=== PATIENT | female | born 1980 | race Caucasian/White ===

== ENCOUNTER 2020-06-02 07:39 | Inpatient (IN) | payer OTHER ==
[~2020-06-02] VITALS: Ht 170.2 cm; Wt 73.9 kg
--- NOTE | 2020-06-03 08:46 | NUR ---
06/03/20 0820 Ai Hernández 0871-PATIENT ARRIVED BACK TO ROOM 105 FOR PACU RECOVERY.PATIENT AWAKE ON RA. RR EVEN DENIES PAIN OR NAUSEA. FUNDUS 2 BELOW UMBLICUS LIGHT RUBRA DRAINAGE ON ARETHA PAD FIRM. DAD HOLDING BABY. LR WITH 20 PITOCIN INFUSING TO RIGHT ARM IV CDI
--- NOTE | 2020-06-04 08:16 | PR ---
[facility] [address] [place], [place] [address] Signed PP Progress Notes Datetime Report Generated by CPN: 06/04/2020 08:16 SUBJECTIVE: [id number] Pain: Within Normal Limits Pain Comments: no void as yet Nausea/Vomiting: Denies Flatus: No Vital Signs: [id number] Vital Signs: Reviewed; Within Normal Limits Cardiovascular: Normal Respiratory: Normal Abdomen/Uterus: Abnormal Lochia: Normal Vulva/Perineum: Not Done Breasts: Not Done CVA Tenderness: Not Done Extremities: Normal Incision: Normal Progress: Normal Exam Comments: Abdomen with active BS. Fundus firm, NT @ U-2. H/H 8.3/25.4, WBC 13, plat 161k IMPRESSION/PLAN/PROCEDURES: [id number] Impression: Normal Progression Other Plans: ambulate, shower Procedures: None Progress Notes: Doing well. Will increase ambulation. She is encouraged to increasse her protein intake. Signing Physician: Cara Yost MD Copies: ~ *Electronically Signed* 06/04/20 08 CARA YOST MD PATIENT NAME: MATTHEW SUN PROGRESS NOTE DATE OF : 80 PHYSICIAN: CARA YOST MD RPT #: [id number] REPORT IS CONFIDENTIAL AND NOT TO BE RELEASED WITHOUT AUTHORIZATION
--- NOTE | 2020-06-05 08:45 | PR ---
[facility] [address] [facility] [place], [place] [address] Signed PP Progress Notes Datetime Report Generated by CPN: 06/05/2020 07:14 SUBJECTIVE: [id number] Pain: Within Normal Limits Pain Comments: no void as yet Nausea/Vomiting: Denies Flatus: No Bowel Movement: Yes Vital Signs: [id number] Vital Signs: Reviewed; Within Normal Limits Cardiovascular: Not Done Respiratory: Not Done Abdomen/Uterus: Abnormal Lochia: Normal Vulva/Perineum: Not Done Breasts: Not Done CVA Tenderness: Not Done Extremities: Normal Incision: Normal Progress: Normal Exam Comments: Abdomen with active BS. Fundus firm, NT @ U-2. IMPRESSION/PLAN/PROCEDURES: [id number] Impression: Normal Progression Plan: Discharge Other Plans: ambulate, shower Procedures: None Progress Notes: Doing well. She is ready for D/C. Signing Physician: Cara Yost MD Copies: ~ *Electronically Signed* 06/05/20713 CARA YOST MD PATIENT NAME: MATTHEW SUN SUE PROGRESS NOTE DATE OF : 80 PHYSICIAN: CARA YOST MD RPT #: [id number] REPORT IS CONFIDENTIAL AND NOT TO BE RELEASED WITHOUT AUTHORIZATION
--- NOTE | 2020-06-06 08:30 | OR ---
[facility] [address] [place], [place] [address] Signed DATE OF OPERATION: 06/03/2020 SURGEON: Cara Yost MD IMAGE EDITOR: Manjinder Echols MD. PREOPERATIVE DIAGNOSES: Term , previous section x2. POSTOPERATIVE DIAGNOSES: Term , previous section x2, delivered. PROCEDURE: Repeat section with low segment transverse uterine incision. ANESTHESIA: Spinal. ESTIMATED BLOOD LOSS: 500 mL. DRAINS: Pope catheter. INDICATIONS AND FINDINGS: The patient is a 40-year-old female, 5, para 2, AB1, ectopic 1, who was admitted at 39 weeks for repeat section. Her has been complicated only by her age. Antepartum testing has been normal. At the time of surgery, she was delivered of a little girl via lower segment transverse uterine incision from the ROT position with Apgars of 9 and 9 and weight of 7 pounds. The uterus, tubes, ovaries, and placenta appeared normal. DESCRIPTION OF PROCEDURE: The patient was prepped and draped in the supine position. She had two prior cesareans scars and these were both excised. The incision was then carried down to the fascia. The incision was extended laterally. The inferior and superior fascial flaps were then created. There was not too much scarring in these areas. The muscles were sharply divided. The peritoneum was opened sharply and the incision extended superiorly and inferiorly. The uterine incision was made at the upper aspect of the peritoneal Electronically Signed By: CARA YOST MD 06/06/20 0830 PATIENT NAME: MATTHEW SUN OPERATIVE REPORT DATE OF : 80 REPORT #: [id number] PHYSICIAN: CARA YOST MD PCP: HUNTER GONZALEZ MD REPORT IS CONFIDENTIAL AND NOT TO BE RELEASED WITHOUT AUTHORIZATION [facility] [address] [place], [place] [address] Signed reflection. The baby was delivered with the above findings and handed off to the pediatric staff in attendance. The placenta was removed manually and the uterus explored with a lap tape assuring no remaining fragments. The edges of the incision were then identified and the uterus was closed in 2 layers using 0 Monocryl. The first layer was a running locking stitch. The second was a vertical imbricating stitch. An additional [id number] was required near the right angle for control of bleeding. Bleeding points on the peritoneum were controlled with cautery. The abdomen was then copiously irrigated and inspected and good hemostasis was noted. The retractor was removed and the peritoneum identified. An ACell graft was laid over the lower segment to aid in healing. The peritoneum was then closed with a running suture of 3-0 Vicryl. The muscles were brought together with interrupted sutures of 0 Vicryl. Bleeding points were controlled with cautery. This layer was also irrigated and hemostasis was found. ACell powder was sprinkled over the muscles to aid in healing. The fascia was then closed from each angle to the midline with a running suture of 0 Vicryl. The subcu space was irrigated and bleeding points controlled with cautery. A few interrupted sutures were placed using 3-0 Vicryl reapproximating the skin edges. The skin incision itself was closed with a running subcuticular suture of 4-0 Vicryl Rapide. This was followed by Mastisol and Steri-Strips. All sponge and needle counts were correct. She tolerated procedure well and was taken to the recovery room in good condition. Cara Yost MD PJW/ANALIL /[id number] cc: Dr. Manjinder Echols Copies: ~ Electronically Signed By: CARA YOST MD 06/06/20 0830 PATIENT NAME: MATTHEW SUN OPERATIVE REPORT DATE OF : 80 REPORT #: [id number] PHYSICIAN: CARA YOST MD PCP: HUNTER GONZALEZ MD REPORT IS CONFIDENTIAL AND NOT TO BE RELEASED WITHOUT AUTHORIZATION
== END 2020-06-05 10:35 | disposition home or self-care (01) | DRG 788 ==
LOC: FBC 06-03 05:10
PROVIDERS: ADMIT Obstetrics & Gynecology; ATTEND Obstetrics & Gynecology
PROC: 3E0T3BZ Introduction of Anesthetic Agent into Peripheral Nerves and Plexi, Percutaneous Approach (ICD-10-PCS; 2020-06-03)
PROC: 3E0T33Z Introduction of Anti-inflammatory into Peripheral Nerves and Plexi, Percutaneous Approach (ICD-10-PCS; 2020-06-03)
PROC: 10D00Z1 Extraction of Products of Conception, Low, Open Approach (ICD-10-PCS; principal; 2020-06-03 06:45)
DX: O34.211 Maternal care for low transverse scar from previous cesarean delivery (principal); N85.8 Other specified noninflammatory disorders of uterus; Z3A.39 39 weeks gestation of pregnancy; Z37.0 Single live birth; G89.18 Other acute postprocedural pain; O32.2XX0 Maternal care for transverse and oblique lie, not applicable or unspecified; G43.009 Migraine without aura, not intractable, without status migrainosus
CPT/HCPCS: 36415; 76942; 85027; A9270; J0690; J1100; J2001; J2274; J2300; J2370; J2405; J2590; J2795; J3010; J7121